=== PATIENT | male | born 1945 | race Caucasian/White ===

== ENCOUNTER 2025-03-12 23:25 | Emergency (ER) | payer OTHER ==
[~2025-03-12] VITALS: Ht 177.8 cm; Wt 89.4 kg
[~2025-03-12 23:25] MED LIST: CALCIUM PO; ENZA80TA PO; HYDR25TA PO; LOSA-418 PO; VITA-328 PO; VITAMIN D PO
[2025-03-12 23:58] LABS: IMMATURE GRANULOCYTE ABSOLUTE 0.02 K/uL (0-1); NUCLEATED RED BLOOD CELLS 0.0 % (0.0-0.19); PLATELET COUNT (AUTO) 217 K/uL (130-400); RED BLOOD CELL COUNT(AUTO) 3.64 MIL/uL (4.50-6.20); RED CELL DISTRIBUTION WIDTH 13.2 % (11.0-15.5); WHITE BLOOD COUNT (AUTO) 6.4 K/uL (4.8-10.8)
[2025-03-13 00:12] LABS: CREATININE 1.2 mg/dL (0.5-1.3); GLOMERULAR FILTR. RATE CALC 62.0 mL/min (>90); GLUCOSE,RANDOM 102.0 mg/dL (70-105); SODIUM SERUM 144.0 mmol/L (136-145); UREA NITROGEN, BLOOD 10.0 mg/dL (7-18)
--- NOTE | 2025-03-13 01:00 | ERN ---
ED Note History of Present Illness Stated Complaint: C/O HIGH B/P Chief Complaint: Hypertension Time Seen by MD: 23:29 Time Seen by Midlevel: 23:29 Dictation: The patient is a 79-year-old male with a history of hypertension, prostate cancer, hernia repair who presents to the emergency department with complaints of elevated blood pressure. Patient reports that he takes his blood pressure every night. Reports he takes losartan 50 mg b.i.d. and hydralazine 10 mg b.i.d.. Reports compliant with medication. Patient reports his initial blood pressure was 150 systolic than got anxious and Kept taking it and went up to 210/80. Patient otherwise denies any chest pain, denies shortness of breath, denies any dizziness or headache. Patient currently has no complaints. Allergies: Coded Allergies: No Known Drug Allergies (Unverified Allergy, Unknown, 04/02/24) Home Meds Active Scripts Losartan Potassium (Cozaar) 50 Mg Tablet, 50 MG PO BID for 30 Days, #60 TAB Prov:SANDRA HUFF MD 04/03/24 Hydrochlorothiazide (Hydrochlorothiazide) 25 Mg Tablet, 12.5 MG PO DAILYPRN PRN for EDEMA, #30 TAB Prov:SANDRA HUFF MD 04/03/24 Reported Medications Vitamin B Complex (B Complex) 1 Each Tablet, 1 TAB PO DAILY for 30 Days, #30 TAB 0 Refills 04/03/24 Enzalutamide (Xtandi) 80 Mg Tablet, 2 TAB PO DAILY for 30 Days, #60 TAB 0 Refills 04/02/24 [vitamin d/calcium] No Conflict Check, 600 MG PO DAILY 04/02/24 Past Medical History Past Medical History: Hypertension, Other Additional Past Medical Hx: PROSTATE CA Surgical History: Other Surgical History Other: HERNIA REPAIR RN Note Reviewed/Agreed w/PFSH: Yes Review of System Dictation Constitutional: Negative for fever,chills, and weight loss Eyes: Negative for injury, pain,redness, and discharge ENT: Negative for injury,pain or swelling Cardiovascular: Negative for chest pain, palpitations, and edema Respiratory: Negative for shortness of breath, cough, and wheezing, Abdomen/GI: Negative for abdominal pain, nausea, vomiting, diarrhea, and constipation Back: Negative for injury and pain : Negative for injury, bleeding and discharge MS/Extremity: Negative for injury and deformity Skin: Negative for rash, and discoloration Neuro: Negative for headache, weakness, numbness, tingling, and seizure Psych: Negative for suicide ideation, homicidal ideation, and hallucinations Initial Vital Sign VS Vital Signs Date Time Temp Pulse Resp B/P (MAP) Pulse Ox O2 Delivery O2 Flow Rate FiO2 03/12/25 23:28 98.8 67 20 210/89 99 Room Air 03/12/25 23:55 0 21 Physical Exam Dictation Vital Signs reviewed General Appearance: Alert, oriented x 3, no acute distress, well developed, nourished. Head and Face: non-traumatic. Eyes: PERRL, pink conjunctivas, eyelid no trauma, anterior chamber with arcus senilis. Ears: Pinnas intact and no signs of trauma or erythema ear canals clear and no discharge TM no erythema Nose: No discharge, no bleeding. Oropharynx: Mouth normal, tongue pink. pharynx clear,no erythema, tonsils no exudates, no abscesses noted, mucous membrane moist Neck: Supple, non-tender, no thyromegaly, no masses, no JVD, no bruits Breast:Deferred Chest:No tenderness, no crepitus, no paradoxical movement, no retractions Lungs:Clear, well-ventilated, symmetric, no rales, no wheezing, no rhonchi, no stridor, good breath sounds bilaterally Heart: Regular rate, regular rhythm, no murmur, no gallops Vascular: no peripheral edema, Abdomen: Soft, positive bowel sounds, nondistended, no guarding, nontender, no rebound, no masses no hepatomegaly, no splenomegaly, no Duvall's sign, no hernias. Rectal: Deferred Genital: Deferred Neurological: Normal speech, motor function intact, sensory function intact , upper extremities equal in strength, lower extremities equal in strength Musculoskeletal: Neck nontender, full range of motion, back nontender, full range of motion, Extremities: nontender, full range of motion Skin: Color pink, dry, no turgor, no rash, no lacerations, no abrasions, no contusions. Lymphatic: Deferred Results (Laboratory/Radiology) Laboratory/Radiology Laboratory Tests Test 03/12/25 23:52 White Blood Count 6.4 K/uL (4.8-10.8) Red Blood Count 3.64 MIL/uL (4.50-6.20) L Hemoglobin 10.8 g/dL (14.0-18.0) L Hematocrit 32.1 % (42-54) L Mean Corpuscular Volume 88.2 fL (79-99) Mean Corpuscular Hemoglobin 29.7 pg (27.0-33.0) Mean Corpuscular Hemoglobin Concent 33.6 g/dL (32.0-36.0) Red Cell Distribution Width 13.2 % (11.0-15.5) Platelet Count 217 K/uL (130-400) Mean Platelet Volume 9.3 fL (7.5-10.5) Immature Granulocyte % (Auto) 0.3 % (0-1) Neutrophils (%) (Auto) 40.9 % (40.0-77.0) Lymphocytes (%) (Auto) 47.8 % (21.0-51.0) Monocytes (%) (Auto) 6.8 % (3.0-13.0) Eosinophils (%) (Auto) 3.9 % (0.0-8.0) Basophils (%) (Auto) 0.3 % (0.0-5.0) Neutrophils # (Auto) 2.6 K/uL (1.8-7.7) Lymphocytes # (Auto) 3.1 K/uL (1.0-4.8) Monocytes # (Auto) 0.4 K/uL (0.1-1.0) Eosinophils # (Auto) 0.25 K/uL (0.00-0.70) Basophils # (Auto) 0.02 K/uL (0.00-0.20) Absolute Immature Granulocyte (auto 0.02 K/uL (0-1) Nucleated Red Blood Cells 0.0 % (0.0-0.19) Sodium Level 144 mmol/L (136-145) Potassium Level 4.1 mmol/L (3.5-5.1) Chloride Level 107 mmol/L (101-111) Carbon Dioxide Level 28 mmol/L (21-32) Blood Urea Nitrogen 10 mg/dL (7-18) Creatinine 1.2 mg/dL (0.5-1.3) Glomerular Filtration Rate Calc 62 mL/min (>90) Random Glucose 102 mg/dL (70-105) Total Calcium 9.0 mg/dL (8.5-10.1) Troponin I High Sensitivity 10 ng/L (4-75) Labs Reviewed?: Yes EKG: (+) rhythm (Sinus rhythm) EKG Comment: Date:03/13/2025 Time:2024 Ventricular rate:65 GA interval:192 QRS duration:90 QT/QTc:415/431 EKG interpretation: Sinus rhythm Reviewed by ED Attending no STEMI ED Course ED Course Orders Procedure Category Date Status Time Cbc With Differential LAB 03/12/25 Complete 23:40 12 Lead Ekg Tracing- EKG 03/12/25 Logged Technical 23:40 Troponin I High LAB 03/12/25 Complete Sensitivity 23:40 Basic Metabolic Panel LAB 03/12/25 Complete 23:40 Hydralazine 20mg Inj PHA 03/13/25 Complete (Apresoline 20mg In 00:00 Current Medications Medications (Trade) Dose Ordered Sig/Misael Route PRN Reason Start Time Stop Time Status Last Admin Dose Admin Hydralazine HCl (APRESOLine 20MG INJ) 10 mg ONCE ONCE IV 03/13/25 00:00 03/13/25 00:01 DC Vital Signs Date Time Temp Pulse Resp B/P (MAP) Pulse Ox O2 Delivery O2 Flow Rate FiO2 03/13/25 00:39 63 16 149/64 98 Room Air* 0 21 03/12/25 23:55 98.2 66 16 173/72 99 Room Air* 0 21 03/12/25 23:28 98.8 67 20 210/89 99 Room Air Medical Decision Making MDM The patient is a 79-year-old male with a history of hypertension, prostate cancer, hernia repair who presents to the emergency department with complaints of elevated blood pressure. Patient reports that he takes his blood pressure every night. Reports he takes losartan 50 mg b.i.d. and hydralazine 10 mg b.i.d.. Reports compliant with medication. Patient reports his initial blood pressure was 150 systolic than got anxious and Kept taking it and went up to 210/80. Patient otherwise denies any chest pain, denies shortness of breath, denies any dizziness or headache. Patient currently has no complaints. CBC showed no leukocytosis, mild normocytic anemia, chemistry showed no electrolyte imbalance, negative troponin, patient received IV hydralazine and blood pressure improved to the 140s. Patient continues neurologically intact, nontoxic appearance, stable vital signs, with no complaints. Patient will be discharged to follow up with PCP. Differential diagnosis: Uncontrolled hypertension, hypertensive urgency, hypertensive emergency Need for hospitalization: Patient does not meet criteria for hospitalization. There are no social concerns with this patient. DX & DISP Disposition: Discharge Departure Impression: Primary Impression: Hypertension Condition: Stable Additional Instructions: Please follow up with the primary doctor in 1-2 days. Continue taking your blood pressure medications as prescribed. If anything worsens or you have any c oncerns please return to ER. FOLLOW-UP WITH PRIMARY CARE PROVIDER IN 1 TO 2 DAYS. TAKE MEDICATIONS DIRECTED HERE IN THE EMERGENCY ROOM. OKAY TO CONTINUE HOME MEDICATIONS UNLESS OTHERWISE DISCUSSED DURING YOUR VISIT IN THE EMERGENCY ROOM TODAY. RETURN TO YOUR NEAREST EMERGENCY ROOM IF SYMPTOMS WORSEN OR IF THERE IS NO IMPROVEMENT. CALL 911 IF YOU NEED IMMEDIATE ASSISTANCE. TAKE TYLENOL [id number] NEEDED AND IF NO CONTRAINDICATIONS ARE PRESENT. INCREASE ORAL HYDRATION. A WOUND CULTURE OR URINE CULTURE WAS ORDERED HERE IN THE EMERGENCY ROOM DEPARTMENT PLEASE FOLLOW-UP WITH PRIMARY CARE PROVIDER AND ADVISE THEM TO GET REPEAT PORTS FROM OUR FACILITY. IF YOU HAD ANY LORIN WRAP/SPLINTS THAT WERE APPLIED HERE, PLEASE DO NOT REMOVE THEM UNTIL YOU SEE YOUR PRIMARY CARE OR SPECIALTY. Referrals: BLACK WINSTON (PCP) Time of Disposition: 00:59 I have reviewed the case, and I agree with, Diagnosis and Plan REGGIE OTT Mar 13, 2025 01:00
[2025-03-13 01:16] VITALS: BP 145/66; PULSE 65; RESP 16; TEMP 98.4; O2SAT 99
--- NOTE | 2025-03-13 06:27 | EKG ---
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
== END 2025-03-13 01:17 | disposition home or self-care (01) ==
LOC: EDH 23:25
DX: I10 Essential (primary) hypertension (principal); I25.2 Old myocardial infarction; Z79.899 Other long term (current) drug therapy; Z98.890 Other specified postprocedural states; Z85.46 Personal history of malignant neoplasm of prostate
CPT/HCPCS: 36415; 80048; 84484; 85025; 93005; 99284